=== PATIENT | male | born 1970 | race American Indian/Alaskan Native ===

== ENCOUNTER 2022-01-23 18:00 | Emergency (ER) | payer SELFPAY ==
[2022-01-23 18:41] VITALS: BP 132/85
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
[2022-01-23] MEDS ORDERED: IBUPROFEN 800 MG TAB PO ONE (23:49)
== END 2022-01-24 00:41 | disposition home or self-care (01) ==
LOC: ED 18:00
DX: S39.012A Strain of muscle, fascia and tendon of lower back, initial encounter (principal); Z79.899 Other long term (current) drug therapy; V87.7XXA Person injured in collision between other specified motor vehicles (traffic), initial encounter; Y93.89 Activity, other specified; Y92.488 Other paved roadways as the place of occurrence of the external cause; Y99.8 Other external cause status
CPT/HCPCS: 99282